=== PATIENT | male | born 1955 | race Caucasian/White ===

== ENCOUNTER 2018-12-10 15:48 | Emergency (ER) | payer BC ==
[~2018-12-10] VITALS: Ht 160 cm; Wt 79.4 kg
[2018-12-10 16:15] LABS: BASOPHIL % 0.2 % (0-2); PLATELET COUNT 254 x10^3mcL (130-400); RED CELL DISTRIBUTION WIDTH 14.4 % (11.5-14.5)
[2018-12-10 16:28] LABS: CALCIUM 8.8 mg/dL (8.5-10.1); CARBON DIOXIDE 26.2 mmol/L (21-32); CHLORIDE SERUM 103 mmol/L (98-107); GFR1 > 60 mL/min; GLUCOSE SERUM 102 mg/dL (74-106); POTASSIUM SERUM 4.1 mmol/L (3.5-5.1); SODIUM SERUM 140 mmol/L (136-145)
[2018-12-10 16:32] LABS: ALBUMIN 4.2 g/dL (3.4-5.0); ALKALINE PHOSPHATASE 84 U/L (46-116); ALT/SGPT 39 U/L (16-63); AST/SGOT 20 U/L (15-37)
[2018-12-10 16:33] LABS: TOTAL PROTEIN, SERUM 8.4 g/dL (6.4-8.2)
[2018-12-10 17:52] VITALS: BP 136/64
== END 2018-12-10 17:52 | disposition home or self-care (01) ==
LOC: ED 15:48
DX: R07.89 Other chest pain (principal); I10 Essential (primary) hypertension
CPT/HCPCS: 36415; J1885